=== PATIENT | female | born 1965 | race Caucasian/White ===

== ENCOUNTER 2019-09-09 23:37 | Emergency (ER) | payer MEDICAID ==
[~2019-09-09] VITALS: Ht 165.1 cm; Wt 72.6 kg
[~2019-09-09 23:37] MED LIST: ASPIR 8181 MG PO; ASPIRIN EC325 MG PO; ASPIRIN325 PO; BENTYL 10 MG CA10 M1 PO; BUTALB-APAP-CA1 EACH PO; CLONAZEPAM 0.50.5 M1 PO; DEPAKOTE; FLEXERIL PO; IBUPROFEN 800800 MG PO; KLOR-CON 1010 MEQ PO; LIPITOR 20 MG T20 M1 PO; LIPITOR10 MG PO; NAPROSYN500 MG PO; NORFLEX100 MG PO; NORVASC2.5 MG PO; NORVASC5 MG PO; OMEPRAZOLE20 M2 PO; PEPCID20 MG PO; PERCOCET 5-3251 EACH PO; PERCOCET PO; PHENERGAN 25 MG25 M1 PO; PROTONIX40 M1 PO; PROZAC 20 MG20 MG; PROZAC20 MG PO; REMERON15 MG PO; RESTORIL15 MG PO; SEROQUEL 50 MG50 MG PO; SKELAXIN 800 M800 M1 PO; TIZANIDINE HCL4 MG PO; TOPROL XL50 MG PO; TRAMADOL 50 MG50 MG PO; TRAZODONE 150150 M1 PO; ULTRAM 50MG TAB50 MG PO; VISTARIL 25 MG25 M1 PO; ZOFRAN4 MG PO
[2019-09-09] MEDS ORDERED: SEROQUEL400 MG PO (23:51)
[2019-09-09] MEDS ORDERED: TEMAZEPAM30 MG PO (23:52)
[2019-09-09] MEDS ORDERED: PAXIL40 MG PO (23:52)
[2019-09-10] MEDS ORDERED: IBUPROFEN 800800 MG PO (00:25)
[2019-09-10] MEDS ORDERED: SOMA250 MG PO (00:25)
[2019-09-10] MEDS ORDERED: MEDROLDOSEPACK PO (00:25)
[2019-09-10 00:46] VITALS: BP 150/89
== END 2019-09-10 00:51 | disposition home or self-care (01) ==
LOC: M.ERS 23:37
DX: S39.012A Strain of muscle, fascia and tendon of lower back, initial encounter (principal); I10 Essential (primary) hypertension; E78.5 Hyperlipidemia, unspecified; F17.210 Nicotine dependence, cigarettes, uncomplicated; Z90.49 Acquired absence of other specified parts of digestive tract; Z98.51 Tubal ligation status; Z98.890 Other specified postprocedural states; Z90.710 Acquired absence of both cervix and uterus; Z87.01 Personal history of pneumonia (recurrent); Z88.5 Allergy status to narcotic agent; Z88.8 Allergy status to other drugs, medicaments and biological substances; X58.XXXA Exposure to other specified factors, initial encounter; Y93.89 Activity, other specified; Y92.89 Other specified places as the place of occurrence of the external cause; Y99.8 Other external cause status

== ENCOUNTER 2020-01-31 09:47 | Emergency (ER) | payer MEDICARE, MEDICAID ==
[~2020-01-31] VITALS: Ht 165.1 cm; Wt 68.0 kg
[~2020-01-31 09:47] MED LIST changes: +MEDROLDOSEPACK PO; +PAXIL40 MG PO; +SEROQUEL400 MG PO; +SOMA250 MG PO; +TEMAZEPAM30 MG PO
[2020-01-31] MEDS ORDERED: KLONOPIN1 MG PO (10:02)
[2020-01-31] MEDS ORDERED: ZOFRAN ODT4 MG PO (11:41)
[2020-01-31] MEDS ORDERED: TRAMADOL 50 MG50 MG PO (11:41)
[2020-01-31 12:03] VITALS: BP 111/69
== END 2020-01-31 12:05 | disposition home or self-care (01) ==
LOC: M.ERS 09:47
DX: G43.909 Migraine, unspecified, not intractable, without status migrainosus (principal); I10 Essential (primary) hypertension; F17.210 Nicotine dependence, cigarettes, uncomplicated; E78.5 Hyperlipidemia, unspecified; Z90.49 Acquired absence of other specified parts of digestive tract; Z98.51 Tubal ligation status; Z98.890 Other specified postprocedural states; Z90.710 Acquired absence of both cervix and uterus; Z88.5 Allergy status to narcotic agent; Z88.8 Allergy status to other drugs, medicaments and biological substances; Z87.01 Personal history of pneumonia (recurrent)

== ENCOUNTER 2020-04-23 00:29 | Observation (INO) | payer MEDICARE, MEDICAID ==
[~2020-04-23] VITALS: Ht 165.1 cm; Wt 79.1 kg
[~2020-04-23 00:29] MED LIST changes: +KLONOPIN1 MG PO; +ZOFRAN ODT4 MG PO
[2020-04-23 00:36] VITALS: BP 136/90
[2020-04-23 01:07] LABS: ABSOLUTE BASOPHILS 0.1 thou/uL (0.0-0.2); ABSOLUTE EOSINOPHILS 0.2 thou/uL (0.0-0.7); ABSOLUTE LYMPHOCYTES 3.1 thou/uL (0.8-5.3); ABSOLUTE MONOCYTES 0.3 thou/uL (0.0-1.2); ABSOLUTE NEUTROPHILS 6.2 thou/uL (1.6-8.1); BASOPHILS 1.4 %; EOSINOPHILS 1.7 %; HEMOGLOBIN 14.8 gm/dL (12.0-15.0); MCH 33.5 pg (26.0-34.0); MCHC 35.4 g/dL (28.0-37.0); MCV 94.8 fL (80.0-100.0); MONOCYTES 2.8 %; MPV 7.4 fl. (7.2-11.1); NUCLEATED RBCS 0 /100WBC; PLATELET COUNT* 321 thou/uL (150-400); POLYS 63.1 %; RBC 4.43 mil/uL (4.20-5.00); RDW-CV 12.8 % (10.5-14.5); WBC 9.8 thou/uL (4.0-11.0)
[2020-04-23 01:15] LABS: CALCIUM 8.6 mg/dL (8.5-10.1); CREATININE 1.2 mg/dL (0.6-1.3); POTASSIUM 3.3 mmol/L (3.5-5.1)
[2020-04-23 01:26] LABS: ALBUMIN 3.9 g/dL (3.4-5.0); MAGNESIUM 1.8 mg/dL (1.8-2.4); TOTAL BILIRUBIN 0.3 mg/dL (<0.1-1.0)
[2020-04-23 03:10] VITALS: BP 153/86
[2020-04-23 03:35] VITALS: BP 142/90
--- NOTE | 2020-04-23 05:45 | NUR ---
REPORT RECIEVED FROM ER. PT ORIENTED TO ROOM, CALL LIGHT SHOWN, FALL AGREEMENT WENT OVER, PT STATED UNDERSTANDING. ADMISSION CHARTED. PAIN MEDS GIVEN PER E-MAR WITH SOME RELIEF. PT INCONTINENT OF URINE THIS SHIFT. WILL CONTINUE WITH PLAN OF CARE.
[2020-04-23 08:00] VITALS: BP 101/69
[2020-04-23 08:47] LABS: CHOLESTEROL 309 mg/dL (<200); HDL CHOLESTEROL 38 mg/dL (>40); TC:HDL 8.1 Ratio (Not establshd); TRIGLYCERIDE 410 mg/dL (<150); VLDL 82 mg/dL (<40)
[2020-04-23 08:49] LABS: LDL CHOLESTEROL ND mg/dL (<100); SERUM ASSESSMENT Clear
[2020-04-23] MEDS ORDERED: MELOXICAM15 MG PO (09:31)
[2020-04-23] MEDS ORDERED: LIPITOR40 MG PO (09:46)
[2020-04-23] MEDS ORDERED: TRAMADOL 50 MG50 MG PO (09:46)
--- NOTE | 2020-04-23 10:00 | NUR ---
PT C/O PAIN TO CHEST AND HEAD. EKG NORMAL. TROPONIN NEGATIVE. PT TO DC HOME.
[2020-04-23 10:27] VITALS: BP 101/69
--- NOTE | 2020-04-23 11:39 | NUR ---
PT DC TO HOME. DC INSTRUCTIONS, PRESCRIPTIONS, PLN OF CARE,MEDICATIONS, FOLLOW UP CARE AND DISEASE PROCESS REVIEWED WITH PT AND PT REPORTS UNDERSTANDING WITHOUT FURTHER QUESTIONS.
--- NOTE | 2020-04-23 15:48 | EKG ---
[place] [address] ELECTROCARDIOGRAM REPORT Name: WILLIE PEDRO Room: [address]R.#: [id number] Admission: 04/23/20 Attend Phys: Cheng Hall, Discharge: 04/23/20 Date of : 63 Date of Service: 04/23/20 0143 Report #: [id number] THIS REPORT FOR: //name// [facility] ED Test Date: 2020-04-23 Test Time: 01:43:47 Pat Name: WILLIE LANDON Department: Room: [facility] Gender: F Assembly Technician: BG : 1965 Requested By: Den Evangelista Order Number: [id number] MD: Ilia Borjas Measurements Intervals [place] Rate: 83 P: 75 [place]: 137 QRS: 72 QRSD: 93 T: 59 QT: 409 QTc: 481 Interpretive Statements Sinus rhythm Borderline repolarization abnormality Borderline prolonged QT interval Compared to ECG 03/01/2017 04:43:03 No significant changes Electronically Signed On 04-23-2020 15:46:01 CDT by Ilia Borjas [email or web address] <ELECTRONICALLY SIGNED> By: Ilia Borjas MD, [facility] 04/23/20 1546 0143 0143 Ilia Borjas MD, [facility] /EPI
--- NOTE | 2020-04-23 15:48 | EKG ---
[place] [address] ELECTROCARDIOGRAM REPORT Name: WILLIE PEDRO Room: [address] M.R.#: [id number] Admission: 04/23/20 Attend Phys: Cheng Hall, Discharge: 04/23/20 Date of : 63 Date of Service: 04/23/20 0032 Report #: [id number] THIS REPORT FOR: //name// [facility] ED Test Date: 2020-04-23 Test Time: 00:32:14 Pat Name: WILLIE LANDON Department: Room: [facility] Gender: F Ad Taker: BG : 1965 Requested By: Den Evangelista Order Number: [id number] MD: Ilia Borjas Measurements Intervals [place] Rate: 92 P: 64 [place]: 135 QRS: 72 QRSD: 89 T: -75 QT: 338 QTc: 419 Interpretive Statements Sinus rhythm Nonspecific repol abnormality, diffuse leads Compared to ECG 03/01/2017 04:43:03 Prolonged QT interval persists Electronically Signed On 04-23-2020 15:45:51 CDT by Ilia Borjas [email or web address] <ELECTRONICALLY SIGNED> By: Ilia Borjas MD, [facility] 04/23/20 1545 003 0032 Ilia Borjas MD, [facility] /EPI
[2020-04-24 02:07] LABS: GLYCOHEMOGLOBIN (HGB A1C) 5.5 % (4.8-5.6)
== END 2020-04-23 11:00 | disposition home or self-care (01) ==
LOC: M.ERS 00:29 → M.TBA-ER 01:56 → M.2W 01:56
PROVIDERS: Emergency Medicine Emergency Medical Services; Family Medicine; ADMIT Internal Medicine; ATTEND Internal Medicine
DX: R07.89 Other chest pain (principal); F41.8 Other specified anxiety disorders; F43.10 Post-traumatic stress disorder, unspecified; E78.5 Hyperlipidemia, unspecified; F17.210 Nicotine dependence, cigarettes, uncomplicated

== ENCOUNTER 2020-05-18 13:22 | Emergency (ER) | payer MEDICARE, MEDICAID ==
[~2020-05-18] VITALS: Ht 165.1 cm; Wt 124.7 kg
[~2020-05-18 13:22] MED LIST changes: +LIPITOR40 MG PO; +MELOXICAM15 MG PO
[2020-05-18] MEDS ORDERED: ONDANSETRON ODT4 MG PO (14:28)
[2020-05-18 14:34] VITALS: BP 105/67
== END 2020-05-18 14:36 | disposition home or self-care (01) ==
LOC: M.ERS 13:22
DX: R51 Headache (principal); I10 Essential (primary) hypertension; E78.5 Hyperlipidemia, unspecified; F32.9 Major depressive disorder, single episode, unspecified; F41.9 Anxiety disorder, unspecified; F17.210 Nicotine dependence, cigarettes, uncomplicated; Z95.5 Presence of coronary angioplasty implant and graft; Z90.49 Acquired absence of other specified parts of digestive tract; Z98.51 Tubal ligation status; Z98.890 Other specified postprocedural states; Z90.710 Acquired absence of both cervix and uterus; Z88.6 Allergy status to analgesic agent; Z88.8 Allergy status to other drugs, medicaments and biological substances

== ENCOUNTER 2020-10-19 08:22 | Emergency (ER) | payer MEDICARE, MEDICAID ==
[~2020-10-19] VITALS: Ht 165.1 cm; Wt 77.1 kg
[~2020-10-19 08:22] MED LIST changes: +ONDANSETRON ODT4 MG PO
[2020-10-19 09:11] VITALS: BP 156/92
== END 2020-10-19 09:12 | disposition left against medical advice (07) ==
LOC: M.ERS 08:22
DX: G43.909 Migraine, unspecified, not intractable, without status migrainosus (principal); I10 Essential (primary) hypertension; E78.5 Hyperlipidemia, unspecified; Z90.49 Acquired absence of other specified parts of digestive tract; Z98.51 Tubal ligation status; Z98.890 Other specified postprocedural states; Z90.710 Acquired absence of both cervix and uterus; Z87.01 Personal history of pneumonia (recurrent); Z88.5 Allergy status to narcotic agent

== ENCOUNTER 2020-10-25 01:20 | Inpatient (IN) | payer MEDICARE, MEDICAID ==
[~2020-10-25] VITALS: Ht 165.1 cm; Wt 79.3 kg
[2020-10-25 01:23] VITALS: BP 129/102
[2020-10-25 01:52] LABS: ABSOLUTE BASOPHILS 0.1 thou/uL (0.0-0.2); ABSOLUTE EOSINOPHILS 0.4 thou/uL (0.0-0.7); ABSOLUTE LYMPHOCYTES 3.3 thou/uL (0.8-5.3); ABSOLUTE MONOCYTES 0.9 thou/uL (0.0-1.2); ABSOLUTE NEUTROPHILS 6.9 thou/uL (1.6-8.1); BASOPHILS 0.8 %; EOSINOPHILS 3.8 %; HEMATOCRIT 39.8 % (37.0-47.0); HEMOGLOBIN 13.7 gm/dL (12.0-15.0); LYMPHOCYTES 28.4 %; MCH 32.5 pg (26.0-34.0); MCHC 34.3 g/dL (28.0-37.0); MCV 94.9 fL (80.0-100.0); MONOCYTES 7.6 %; NUCLEATED RBCS 0 /100WBC; PLATELET COUNT* 295 thou/uL (150-400); POLYS 59.4 %; RDW-CV 13.1 % (10.5-14.5); WBC 11.6 thou/uL (4.0-11.0)
[2020-10-25 01:57] LABS: PROTIME 10.2 Seconds (9.20-11.50)
[2020-10-25 02:18] LABS: URINE BILIRUBIN NEGATIVE (Negative); URINE BLOOD NEGATIVE (Negative); URINE CLARITY CLEAR; URINE COLOR YELLOW; URINE GLUCOSE-RANDOM NEGATIVE (Negative); URINE KETONES NEGATIVE (Negative); URINE LEUKOCYTES-REFLEX NEGATIVE (Negative); URINE NITRITE-REFLEX NEGATIVE (Negative); URINE PROTEIN NEGATIVE (Negative); URINE SPECIFIC GRAVITY <= 1.005 (1.005-1.030); URINE UROBILINOGEN 0.2 E.U./dl (0.2-1.0)
[2020-10-25 02:26] LABS: AMP/METHAMP Negative (Negative); BARBITURATES Negative (Negative); BENZODIAZEPINES Negative (Negative); COCAINE Negative (Negative); METHADONE Negative (Negative); OPIATES POSITIVE (Negative); PCP Negative (Negative); THC Negative (Negative)
[2020-10-25 02:37] LABS: CALCIUM 8.7 mg/dL (8.5-10.1); POTASSIUM 3.5 mmol/L (3.5-5.1)
[2020-10-25 02:48] LABS: ALBUMIN 3.5 g/dL (3.4-5.0); MAGNESIUM 1.8 mg/dL (1.8-2.4); TOTAL BILIRUBIN 0.2 mg/dL (<0.1-1.0); TOTAL PROTEIN 7.2 g/dL (6.4-8.2)
[2020-10-25 10:37] VITALS: BP 140/83
--- NOTE | 2020-10-25 13:43 | 2DMMODE ---
[place] [address] 2 D/M-MODE ECHOCARDIOGRAM Name: WILLIE PEDOR Room: [place] [address] ADM IN [facility]#: [id number] Admission: 10/25/20 Attend Phys: Cheng Hall, Discharge: Date of : 63 Date of Service: 10/25/20 1342 Report #: [id number] THIS REPORT FOR: cc: FAM - No family physician/PCP FAM - No family physician/PCP Mendoza Wilson MD [facility] ~ APPROVED REPORT Study performed: 10/25/2020 09:45:34 EXAM: Comprehensive 2D, Doppler, and color-flow Echocardiogram Patient Location: In-Patient Room #: er Status: routine BSA: 1.80 HR: 68 bpm BP: 124/75 mmHg Rhythm: NSR Other Information Study Quality: Good Indications Chest Pain 2D Dimensions IVSd: 10.91 (7-11mm) LVOT Diam: 21.17 (18-24mm) LVDd: 46.82 mm PWd: 10.35 (7-11mm) Ascending Ao: 32.72 (22-36mm) LVDs: 29.55 (25-40mm) Aortic Root: 31.58 mm Volumes Left Atrial Volume (Systole) LA ESV Index: 29.50 mL/m2 Aortic Valve AoV Peak Antoni.: 1.46 m/s AO Peak Gr.: 8.53 mmHg LVOT Max P.41 mmHg AO Mean Gr.: 4.67 mmHg LVOT Mean P.30 mmHg LVOT Max V: 0.78 m/s AO V2 VTI: 32.33 cm LVOT Mean V: 0.53 m/s BELLA (VTI): 1.96 cm2 LVOT V1 VTI: 17.98 cm AI Wilcox: 2.64 m/s2 [place] [address] 2 D/M-MODE ECHOCARDIOGRAM Name: WILLIE PEDRO Room: [address] IN .R.#: [id number] Admission: 10/25/20 Attend Phys: Cheng Hall, Discharge: Date of : 63 Date of Service: 10/25/20 1342 Report #: [id number] AI PHT: 444.39 ms Mitral Valve E/A Ratio: 1.12 MV Decel. Time: 213.41 ms MV E Max Antoni.: 0.75 m/s MV PHT: 61.89 ms MVA (PHT): 3.55 cm2 TDI E/Lateral E': 7.50 E/Medial E': 8.33 Medial E' Antoni.: 0.09 m/s Lateral E' Antoni.: 0.10 m/s Pulmonary Valve PV Peak Antoni.: 0.90 m/s PV Peak Gr.: 3.23 mmHg Tricuspid Valve RAP Estimate: 5.00 mmHg TR Peak Gr.: 30.79 mmHg RVSP: 35.00 mmHg PA Pressure: 35.00 mmHg Left Ventricle The left ventricle is normal size. There is normal LV segmental wall motion. There is normal left ventricular wall thickness. Left ventricular systolic function is normal. LVEF is 55-60%. The left ventricular diastolic function is normal. Right Ventricle The right ventricle is normal size. The right ventricular systolic function is normal. Atria The left atrium size is normal. The right atrium size is normal. Aortic Valve The aortic valve is normal in structure. Mild aortic regurgitation. There is no aortic valvular stenosis. Mitral Valve The mitral valve is normal in structure. Mild mitral regurgitation. No evidence of mitral valve stenosis. Tricuspid Valve The tricuspid valve is normal in structure. [place] [address] 2 D/M-MODE ECHOCARDIOGRAM Name: WILLIE PEDRO Room: [address] IN [facility]#: [id number] Admission: 10/25/20 Attend Phys: Cheng Hall, Discharge: Date of : 63 Date of Service: 10/25/20 1342 Report #: [id number] regurgitation. Mild pulmonary hypertension. The RVSP is 40-45 mmHg. Pulmonic Valve The pulmonary valve is normal in structure. Trace pulmonic regurgitation. Great Vessels The aortic root is normal in size. IVC is normal in size and collapses >50% with inspiration. Pericardium There is no pericardial effusion. <Conclusion> The left ventricle is normal size. There is normal left ventricular wall thickness. Left ventricular systolic function is normal. LVEF is 55-60%. The left ventricular diastolic function is normal. Mild aortic regurgitation. Mild mitral regurgitation. Mild tricuspid regurgitation. Mild pulmonary hypertension. The RVSP is 40-45 mmHg. IVC is normal in size and collapses >50% with inspiration. <ELECTRONICALLY SIGNED> By: Mendoza Wilson MD, FACC 10/25/20 134 41 41 Mendoza Wilson MD, FACC /INF
[2020-10-25 13:49] VITALS: BP 120/69
--- NOTE | 2020-10-25 14:07 | EKG ---
[place] [address] ELECTROCARDIOGRAM REPORT Name: WILLIE PEDRO Room: [address] ADM IN [facility]#: [id number] Admission: 10/25/20 Attend Phys: Cheng Hall, Discharge: Date of : 63 Date of Service: 10/25/20 0558 Report #: [id number] THIS REPORT FOR: //name// [facility] ED Test Date: 2020-10-25 Test Time: 05:58:41 Pat Name: WILLIE LANDON Department: Room: [facility] Gender: F Product Mgmt Dev Manager: MARLO : 1965 Requested By: Mercedes Espinoza Order Number: [id number] MD: Chele Quintana Measurements Intervals [place] Rate: 67 P: 72 [place]: 146 QRS: 67 QRSD: 115 T: 72 QT: 437 QTc: 462 Interpretive Statements Sinus rhythm Nonspecific intraventricular conduction delay Minimal ST depression, lateral leads Baseline wander in lead(s) V1,V6 Electronically Signed On 10-25-2020 14:07:32 AEROGRAPHER by Chele Quintana [email or web address] <ELECTRONICALLY SIGNED> By: Chele Quintana MD, FAC 10/25/20 1407 0558 0558 Chele Quintana MD, [facility] /EPI
--- NOTE | 2020-10-25 14:07 | EKG ---
[place] [address] ELECTROCARDIOGRAM REPORT Name: WILLIE PEDRO Room: [address] ADM IN [facility]#: [id number] Admission: 10/25/20 Attend Phys: Cheng Hall, Discharge: Date of : 63 Date of Service: 10/25/20 0129 Report #: [id number] THIS REPORT FOR: //name// [facility] ED Test Date: 2020-10-25 Test Time: 01:29:00 Pat Name: WILLIE LANDON Department: Room: [facility] Gender: F Scratch Finisher: MR : 1965 Requested By: Mercedes Espinoza Order Number: [id number] MD: Chele Quintana Measurements Intervals [place] Rate: 70 P: 67 NH: 142 QRS: 73 QRSD: 98 T: 70 QT: 460 QTc: 497 Interpretive Statements Sinus rhythm Minimal ST depression, diffuse leads Borderline prolonged QT interval Compared to ECG 04/23/2020 01:43:47 no change Electronically Signed On 10-25-2020 14:07:12 COMPUTER NETWORKER by Chele Quintana [email or web address] <ELECTRONICALLY SIGNED> By: Chele Quintana MD, FACC 10/25/20 1407 0129 0129 Chele Quintana MD, [facility] /EPI
[2020-10-25 20:00] VITALS: BP 116/69
[2020-10-26 00:19] VITALS: BP 116/65
[2020-10-26 04:15] LABS: ABSOLUTE LYMPHOCYTES 1.1 thou/uL (0.8-5.3); ABSOLUTE MONOCYTES 0.4 thou/uL (0.0-1.2); ABSOLUTE NEUTROPHILS 12.9 thou/uL (1.6-8.1); BASOPHILS 0.2 %; HEMATOCRIT 37.3 % (37.0-47.0); HEMOGLOBIN 12.4 gm/dL (12.0-15.0); LYMPHOCYTES 7.8 %; MCH 31.8 pg (26.0-34.0); MCHC 33.2 g/dL (28.0-37.0); MCV 95.7 fL (80.0-100.0); MONOCYTES 2.9 %; NUCLEATED RBCS 0 /100WBC; PLATELET COUNT* 289 thou/uL (150-400); POLYS 89.1 %; RBC 3.89 mil/uL (4.20-5.00); WBC 14.4 thou/uL (4.0-11.0)
[2020-10-26 04:30] LABS: CALCIUM 8.4 mg/dL (8.5-10.1); CREATININE 1.1 mg/dL (0.6-1.3); POTASSIUM 4.1 mmol/L (3.5-5.1)
[2020-10-26 04:48] VITALS: BP 109/62
[2020-10-26 08:00] VITALS: BP 119/74
[2020-10-26 11:43] VITALS: BP 145/70
[2020-10-26 16:00] VITALS: BP 142/65
[2020-10-27 08:00] VITALS: BP 147/90
[2020-10-27] MEDS ORDERED: PREDNISONE 10 M10 MG PO (09:45)
[2020-10-27] MEDS ORDERED: AUGMENTIN 875-1 EACH PO (09:45)
[2020-10-27] MEDS ORDERED: NICOTINE TRANSD21 M1 TRANSDERM (09:45)
[2020-10-27] MEDS ORDERED: PERCOCET 10-321 EACH PO (09:45)
[2020-10-27] MEDS ORDERED: SINGULAIR 10 MG10 M1 PO (09:49)
[2020-10-27 09:56] VITALS: BP 147/90
== END 2020-10-27 14:30 | disposition home or self-care (01) | DRG 189 ==
LOC: M.ERS 01:20 → M.2W 06:47 → M.TBA-ER 06:47 → M.2W 14:00
PROVIDERS: Emergency Medicine; ADMIT Internal Medicine; ATTEND Internal Medicine
PROC: 5A0935A Assistance with Respiratory Ventilation, Less than 24 Consecutive Hours, High Flow/Velocity Cannula (ICD-10-PCS; principal; 2020-10-25)
PROC: 5A0935A Assistance with Respiratory Ventilation, Less than 24 Consecutive Hours, High Flow/Velocity Cannula (ICD-10-PCS; 2020-10-26)
DX: J96.21 Acute and chronic respiratory failure with hypoxia (principal); J44.1 Chronic obstructive pulmonary disease with (acute) exacerbation; F41.9 Anxiety disorder, unspecified; R09.1 Pleurisy; D72.829 Elevated white blood cell count, unspecified; F17.210 Nicotine dependence, cigarettes, uncomplicated; F43.10 Post-traumatic stress disorder, unspecified; F32.9 Major depressive disorder, single episode, unspecified; I10 Essential (primary) hypertension; G89.29 Other chronic pain; K21.9 Gastro-esophageal reflux disease without esophagitis; E78.5 Hyperlipidemia, unspecified; Z20.828 Contact with and (suspected) exposure to other viral communicable diseases; Z90.49 Acquired absence of other specified parts of digestive tract; Z98.891 History of uterine scar from previous surgery; Z90.710 Acquired absence of both cervix and uterus; Z79.899 Other long term (current) drug therapy; Z88.5 Allergy status to narcotic agent; Z88.8 Allergy status to other drugs, medicaments and biological substances

== ENCOUNTER 2020-11-15 07:18 | Emergency (ER) | payer MEDICARE, MEDICAID ==
[~2020-11-15] VITALS: Ht 165.1 cm; Wt 72.6 kg
[~2020-11-15 07:18] MED LIST changes: +AUGMENTIN 875-1 EACH PO; +NICOTINE TRANSD21 M1 TRANSDERM; +PERCOCET 10-321 EACH PO; +PREDNISONE 10 M10 MG PO; +SINGULAIR 10 MG10 M1 PO
[2020-11-15 07:47] LABS: HEMATOCRIT 41.8 % (37.0-47.0); HEMOGLOBIN 14.1 gm/dL (12.0-15.0); MCH 32.5 pg (26.0-34.0); MCHC 33.8 g/dL (28.0-37.0); MCV 96.3 fL (80.0-100.0); MPV 6.9 fl. (7.2-11.1); NUCLEATED RBCS 0 /100WBC; PLATELET COUNT* 333 thou/uL (150-400); RBC 4.34 mil/uL (4.20-5.00); RDW-CV 13.8 % (10.5-14.5); WBC 10.6 thou/uL (4.0-11.0)
[2020-11-15 07:59] LABS: CALCIUM 8.2 mg/dL (8.5-10.1); CREATININE 1.3 mg/dL (0.6-1.3); POTASSIUM 3.9 mmol/L (3.5-5.1)
[2020-11-15 08:09] LABS: ALBUMIN 3.5 g/dL (3.4-5.0); MAGNESIUM 1.7 mg/dL (1.8-2.4); TOTAL BILIRUBIN 0.2 mg/dL (<0.1-1.0); TOTAL PROTEIN 7.3 g/dL (6.4-8.2)
[2020-11-15 08:19] LABS: ABSOLUTE EOSINOPHILS 0.1 thou/uL (0.0-0.7); ABSOLUTE LYMPHOCYTES 2.7 thou/uL (0.8-5.3); ABSOLUTE MONOCYTES 0.3 thou/uL (0.0-1.2); ABSOLUTE NEUTROPHILS 7.5 thou/uL (1.6-8.1); PLATELET ESTIMATE ADEQUATE
[2020-11-15] MEDS ORDERED: ULTRAM50 MG PO (15:31)
[2020-11-15 15:55] VITALS: BP 124/66
--- NOTE | 2020-11-15 16:25 | EKG ---
[place] [address] ELECTROCARDIOGRAM REPORT Name: WILLIE PEDRO Room: [facility]#: [id number] Admission: 11/15/20 Attend Phys: Discharge: 11/15/20 Date of : 63 Date of Service: 11/15/20 0723 Report #: [id number] THIS REPORT FOR: //name// ED Test Date: 2020-11-15 Test Time: 07:23:37 Pat Name: WILLIE LANDON Department: Room: Gender: F [place] Head: HOWARD : 1965 Requested By: Den Evangelista Order Number: [id number] MD: Mendoza Wilson Measurements Intervals [place] Rate: 84 P: 65 [place]: 129 QRS: 74 QRSD: 89 T: 63 QT: 390 QTc: 462 Interpretive Statements Sinus rhythm Minimal ST depression, inferior leads Compared to ECG 10/25/2020 05:58:41 Intraventricular conduction delay no longer present ST (T wave) deviation still present Electronically Signed On 11-15-2020 16:25:30 DOPE FIRER by Mendoza Wilson [email or web address] <ELECTRONICALLY SIGNED> By: Mendoza Wilson MD, FACC 11/15/20 1625 Mendoza Wilson MD, FAC /EPI
--- NOTE | 2020-11-15 16:27 | EKG ---
[place] [address] ELECTROCARDIOGRAM REPORT Name: WILLIE PEDRO Room: [facility]#: [id number] Admission: 11/15/20 Attend Phys: Discharge: 11/15/20 Date of : 63 Date of Service: 11/15/20930 Report #: [id number] THIS REPORT FOR: //name// [facility] ED Test Date: 2020-11-15 Test Time: 09:31:15 Pat Name: WILLIE LANDON Department: Room: Gender: F Towboat Pilot: JANAK : 1965 Requested By: Den Evangelista Order Number: [id number] MD: Mendoza Wilson Measurements Intervals [place] Rate: 75 P: 50 MI: 129 QRS: 69 QRSD: 89 T: 78 QT: 416 QTc: 465 Interpretive Statements Sinus rhythm Minimal ST depression, diffuse leads Compared to ECG 11/15/2020 07:23:37 No significant changes Electronically Signed On 11-15-2020 16:27:08 COLOR BLENDER by Mendoza Wilson [email or web address] <ELECTRONICALLY SIGNED> By: Mendoza Wilson MD, FACC 11/15/20 1627 0 Mendoza Wilson MD, [facility] /EPI
--- NOTE | 2020-11-15 16:34 | EXE ---
[place] [address] STRESS ECHOCARDIOGRAM Name: MARIAH LANDONWILLIE Room: [facility]#: [id number] Admission: 11/15/20 Attend Phys: Discharge: 11/15/20 Date of : 63 Date of Service: 11/15/20 1634 Report #: [id number] THIS REPORT FOR: cc: NANCY BENJAMIN MD, CHADWICK MD Liston, Michael J. MD [facility] ~ APPROVED REPORT Study performed: 11/15/2020 13:38:46 Exam: Dobutamine Stress Echo Indication: Chest pain Patient Location: ER Stress Nurse: Trinity Savage RN Supervising Physician: Ilia Borjas MD Status: routine Ht: 5 ft 5 in HR: 74 bpm BP: 109/82 mmHg Rhythm: NSR Medical History Allergies: codeine, ntg Cardiac Risk Factors: HTN, Hyperlipidemia, Tobacco History (Current/Recent) Procedure The patient underwent a Pharmacological Stress Test using Dobutamine. Blood pressure, heart rate, and EKG were monitored. An Echocardiogram was performed by pharmacy technician infusion in four stages in quad fashion. At peak stress, four selected images were obtained and placed side by side with resting images for comparison. Stress Test Details Stress Test: Pharmacological Stress Test using Dobutamine. Reason for pharmacologic stress test: physical limitation. HR Resting HR: 74 bpm Max Heart Rate (APMHR): 164 bpm Max HR Achieved: 141 bpm Target HR (85% APMHR): 139 bpm % of APMHR: 85 Recovery HR: 90 bpm HR response to stress: [place] [address] STRESS ECHOCARDIOGRAM Name: WILLIE PEDRO Room: [facility]#: [id number] Admission: 11/15/20 Attend Phys: Discharge: 11/15/20 Date of : 63 Date of Service: 11/15/20 1634 Report #: [id number] Resting BP: 109/82 mmHg Max BP: 145/69 mmHg Recovery BP: 100/67 mmHg BP response to stress: Normal blood pressure response to stress. ECG Resting ECG: Sinus Rhythm, nonspecific ST-T abnormalities Stress ECG: Sinus Tachycardia, nonspecific ST-T abnormalities ST Change: None Arrhythmia: None Recovery ECG: Sinus Rhythm, nonspecific ST-T abnormalities Recovery ST Change: None Recovery Arrhythmia: None Clinical Reason for Termination: Completed protocol The patient tolerated dobutamine stress rest without significant cardiac complaint. Stress ECG Conclusion Baseline twelve-lead EKG shows sinus rhythm with subtle ST segment depression diffusely. EKGs obtained during and post dobutamine infusion show sinus rhythm and sinus tachycardia with persistent diffuse ST segment depression. There were no stress-induced arrhythmias. Pre-Stress Echo The resting Echocardiogram showed normal left ventricular contractility with an estimated Ejection Fraction of about 55-60%. The resting echocardiogram demonstrated normal wall motion in all wall segments. Post-Stress Echo The stress Echocardiogram showed normal left ventricular contractility with an estimated Ejection Fraction of about >70%. Compared to rest, there were no stress-induced wall motion abnormalities. Conclusion Clinical Response: Non-ischemic Stress ECG Response: Nondiagnostic Stress Echo Images: [place] [address] STRESS ECHOCARDIOGRAM Name: WILLIE PEDRO Room: [facility]#: [id number] Admission: 11/15/20 Attend Phys: Discharge: 11/15/20 Date of : 63 Date of Service: 11/15/20 1634 Report #: [id number] EKG was nondiagnostic due to baseline ST segment abnormalities. Echocardiogram was obtained prior during and post dobutamine infusion show normal LV systolic function with no evidence of stress-induced wall motion abnormality. This is a low risk study. Other Information Study Quality: Good <Conclusion> EKG was nondiagnostic due to baseline ST segment abnormalities. Echocardiogram was obtained prior during and post dobutamine infusion show normal LV systolic function with no evidence of stress-induced wall motion abnormality. This is a low risk study. <ELECTRONICALLY SIGNED> By: Mendoza Wilson MD, [facility] 11/15/20 1634 1634 163 Mendoza Wilson MD, FACC /INF
== END 2020-11-15 15:56 | disposition home or self-care (01) ==
LOC: M.ERS 07:18
PROVIDERS: Emergency Medicine Emergency Medical Services
DX: R07.81 Pleurodynia (principal); J44.9 Chronic obstructive pulmonary disease, unspecified; F41.9 Anxiety disorder, unspecified; I10 Essential (primary) hypertension; E78.5 Hyperlipidemia, unspecified; F32.9 Major depressive disorder, single episode, unspecified; F17.210 Nicotine dependence, cigarettes, uncomplicated; Z98.890 Other specified postprocedural states; Z90.49 Acquired absence of other specified parts of digestive tract; Z90.711 Acquired absence of uterus with remaining cervical stump; Z79.899 Other long term (current) drug therapy; Z88.5 Allergy status to narcotic agent; Z88.8 Allergy status to other drugs, medicaments and biological substances

== ENCOUNTER 2020-11-20 19:17 | Emergency (ER) | payer MEDICARE, MEDICAID ==
[~2020-11-20] VITALS: Ht 165.1 cm; Wt 72.6 kg
[~2020-11-20 19:17] MED LIST changes: +ULTRAM50 MG PO
[2020-11-20 20:53] LABS: MPV 6.9 fl. (7.2-11.1); NUCLEATED RBCS 0 /100WBC; PLATELET COUNT* 322 thou/uL (150-400)
[2020-11-20 20:54] LABS: URINE BILIRUBIN NEGATIVE (Negative); URINE BLOOD NEGATIVE (Negative); URINE CLARITY CLEAR; URINE COLOR YELLOW; URINE GLUCOSE-RANDOM NEGATIVE (Negative); URINE KETONES NEGATIVE (Negative); URINE LEUKOCYTES-REFLEX NEGATIVE (Negative); URINE NITRITE-REFLEX NEGATIVE (Negative); URINE PROTEIN NEGATIVE (Negative); URINE SPECIFIC GRAVITY <= 1.005 (1.005-1.030); URINE UROBILINOGEN 0.2 E.U./dl (0.2-1.0)
[2020-11-20 20:56] LABS: HEMATOCRIT 40.6 % (37.0-47.0); HEMOGLOBIN 13.7 gm/dL (12.0-15.0); MCH 32.3 pg (26.0-34.0); MCHC 33.8 g/dL (28.0-37.0); MCV 95.5 fL (80.0-100.0); RBC 4.25 mil/uL (4.20-5.00); RDW-CV 13.7 % (10.5-14.5); WBC 12.4 thou/uL (4.0-11.0)
[2020-11-20 21:02] LABS: CALCIUM 8.5 mg/dL (8.5-10.1); POTASSIUM 3.9 mmol/L (3.5-5.1)
[2020-11-20 21:03] LABS: AMP/METHAMP Negative (Negative); BARBITURATES POSITIVE (Negative); BENZODIAZEPINES Negative (Negative); COCAINE Negative (Negative); METHADONE Negative (Negative); OPIATES Negative (Negative); PCP Negative (Negative); THC Negative (Negative)
[2020-11-20 21:07] LABS: ALBUMIN 3.4 g/dL (3.4-5.0); TOTAL BILIRUBIN 0.2 mg/dL (<0.1-1.0); TOTAL PROTEIN 6.8 g/dL (6.4-8.2)
[2020-11-20] MEDS ORDERED: TORADOL 10 MG T10 MG PO (21:37)
[2020-11-20] MEDS ORDERED: HYDROCODON-ACE1 EAC7 PO (21:37)
[2020-11-20 21:44] LABS: ABSOLUTE LYMPHOCYTES 4.2 thou/uL (0.8-5.3); ABSOLUTE MONOCYTES 1.1 thou/uL (0.0-1.2); ABSOLUTE NEUTROPHILS 7.1 thou/uL (1.6-8.1)
[2020-11-20 21:45] VITALS: BP 131/79
[2020-11-20 21:45] LABS: PLATELET ESTIMATE ADEQUATE
--- NOTE | 2020-11-22 12:42 | EKG ---
[place] [address] ELECTROCARDIOGRAM REPORT Name: WILLIE PEDRO Room: [facility]#: [id number] Admission: 11/20/20 Attend Phys: Discharge: 11/20/20 Date of : 63 Date of Service: 11/20/201919 Report #: [id number] THIS REPORT FOR: //name// [place] ED Test Date: 2020-11-20 Test Time: 19:20:00 Pat Name: WILLIE LANDON Department: Room: Gender: F Shot Peen Operator: JAE : 1965 Requested By: Norma Ritter Order Number: [id number] MD: Chele Quintana Measurements Intervals [place] Rate: 81 P: 68 [place]: 131 QRS: 69 QRSD: 95 T: 72 QT: 384 QTc: 446 Interpretive Statements Sinus rhythm Compared to ECG 11/15/2020 09:31:15 ST (T wave) deviation no longer present Electronically Signed On 11-22-2020 12:42:25 CONSTRUCTION ENGINEERING MANAGER by Chele Quintana [email or web address] <ELECTRONICALLY SIGNED> By: Chele Quintana MD, FAC 11/22/20 1242 1920 1920 Chele Quintana MD, [facility] /EPI
== END 2020-11-20 21:46 | disposition home or self-care (01) ==
LOC: M.ERS 19:17
PROVIDERS: Personal Emergency Response Attendant
DX: R07.89 Other chest pain (principal); I10 Essential (primary) hypertension; E78.5 Hyperlipidemia, unspecified; F17.210 Nicotine dependence, cigarettes, uncomplicated; Z90.710 Acquired absence of both cervix and uterus; Z90.49 Acquired absence of other specified parts of digestive tract; Z79.899 Other long term (current) drug therapy; Z88.5 Allergy status to narcotic agent; Z88.8 Allergy status to other drugs, medicaments and biological substances

== ENCOUNTER 2020-12-03 09:43 | Emergency (ER) | payer MEDICARE, MEDICAID ==
[~2020-12-03] VITALS: Ht 165.1 cm; Wt 68.0 kg
[~2020-12-03 09:43] MED LIST changes: +HYDROCODON-ACE1 EAC7 PO; +TORADOL 10 MG T10 MG PO
[2020-12-03 12:12] VITALS: BP 110/62
== END 2020-12-03 12:13 | disposition left against medical advice (07) ==
LOC: M.ERS 09:43
DX: R51.9 Headache, unspecified (principal); I10 Essential (primary) hypertension; E78.5 Hyperlipidemia, unspecified; F17.210 Nicotine dependence, cigarettes, uncomplicated; Z90.710 Acquired absence of both cervix and uterus; Z79.899 Other long term (current) drug therapy; Z88.5 Allergy status to narcotic agent; Z88.8 Allergy status to other drugs, medicaments and biological substances

== ENCOUNTER 2020-12-30 04:14 | Emergency (ER) | payer MEDICARE, MEDICAID ==
[~2020-12-30] VITALS: Ht 165.1 cm; Wt 77.1 kg
[2020-12-30 04:39] LABS: URINE BILIRUBIN NEGATIVE (Negative); URINE BLOOD NEGATIVE (Negative); URINE CLARITY CLEAR; URINE COLOR YELLOW; URINE GLUCOSE-RANDOM NEGATIVE (Negative); URINE KETONES NEGATIVE (Negative); URINE LEUKOCYTES-REFLEX NEGATIVE (Negative); URINE NITRITE-REFLEX NEGATIVE (Negative); URINE PROTEIN NEGATIVE (Negative); URINE UROBILINOGEN 0.2 E.U./dl (0.2-1.0)
[2020-12-30] MEDS ORDERED: TRAMADOL 50 MG50 MG PO (04:56)
[2020-12-30] MEDS ORDERED: SOMA350 MG PO (04:56)
[2020-12-30] MEDS ORDERED: MEDROLDOSEPACK PO ×2 (04:56→05:29)
[2020-12-30 05:30] VITALS: BP 138/78
== END 2020-12-30 05:30 | disposition home or self-care (01) ==
LOC: M.ERS 04:14
PROVIDERS: Emergency Medicine
DX: M54.5 Low back pain (principal); I10 Essential (primary) hypertension; E78.5 Hyperlipidemia, unspecified; F17.210 Nicotine dependence, cigarettes, uncomplicated; Z88.5 Allergy status to narcotic agent; Z88.8 Allergy status to other drugs, medicaments and biological substances; Z90.49 Acquired absence of other specified parts of digestive tract; Z98.51 Tubal ligation status; Z90.710 Acquired absence of both cervix and uterus; Z87.01 Personal history of pneumonia (recurrent)

== ENCOUNTER 2021-01-03 20:36 | Emergency (ER) | payer MEDICARE, MEDICAID ==
[~2021-01-03] VITALS: Ht 165.1 cm; Wt 77.1 kg
[~2021-01-03 20:36] MED LIST changes: +SOMA350 MG PO
[2021-01-03] MEDS ORDERED: SOMA350 MG PO (20:59)
[2021-01-03] MEDS ORDERED: TRAMADOL 50 MG50 MG PO (20:59)
[2021-01-03 21:05] VITALS: BP 146/116
== END 2021-01-03 21:05 | disposition home or self-care (01) ==
LOC: M.ERS 20:36
DX: M54.5 Low back pain (principal); I10 Essential (primary) hypertension; E78.5 Hyperlipidemia, unspecified; Z98.51 Tubal ligation status; Z98.890 Other specified postprocedural states; Z90.711 Acquired absence of uterus with remaining cervical stump; F32.9 Major depressive disorder, single episode, unspecified; F41.9 Anxiety disorder, unspecified; F17.210 Nicotine dependence, cigarettes, uncomplicated; Z79.899 Other long term (current) drug therapy; Z88.5 Allergy status to narcotic agent; Z88.8 Allergy status to other drugs, medicaments and biological substances

== ENCOUNTER 2021-01-30 18:32 | Emergency (ER) | payer MEDICARE, MEDICAID ==
[~2021-01-30] VITALS: Ht 165.1 cm; Wt 77.1 kg
[2021-01-30 19:20] LABS: HEMATOCRIT 40.3 % (37.0-47.0); HEMOGLOBIN 13.7 gm/dL (12.0-15.0); MCHC 34.1 g/dL (28.0-37.0); MCV 96.7 fL (80.0-100.0); NUCLEATED RBCS 0 /100WBC; PLATELET COUNT* 301 thou/uL (150-400); RBC 4.16 mil/uL (4.20-5.00); RDW-CV 13.6 % (10.5-14.5); WBC 8.5 thou/uL (4.0-11.0)
[2021-01-30 19:32] LABS: CALCIUM 8.7 mg/dL (8.5-10.1); CREATININE 1.1 mg/dL (0.6-1.3); POTASSIUM 4.2 mmol/L (3.5-5.1)
[2021-01-30 19:33] LABS: APTT 24.2 Seconds (25.0-31.3); INR 0.9; PROTIME 9.8 Seconds (9.20-11.50)
[2021-01-30 19:46] LABS: ALBUMIN 3.6 g/dL (3.4-5.0); MAGNESIUM 2.1 mg/dL (1.8-2.4); TOTAL BILIRUBIN 0.3 mg/dL (<0.1-1.0); TOTAL PROTEIN 7.1 g/dL (6.4-8.2)
[2021-01-30 19:56] LABS: ABSOLUTE MONOCYTES 0.3 thou/uL (0.0-1.2); ABSOLUTE NEUTROPHILS 5.3 thou/uL (1.6-8.1); ATYPICAL LYMPHS 2 %; PLATELET ESTIMATE ADEQUATE
[2021-01-30 19:59] LABS: URINE BILIRUBIN NEGATIVE (Negative); URINE BLOOD NEGATIVE (Negative); URINE CLARITY CLEAR; URINE COLOR YELLOW; URINE GLUCOSE-RANDOM NEGATIVE (Negative); URINE KETONES NEGATIVE (Negative); URINE LEUKOCYTES-REFLEX NEGATIVE (Negative); URINE NITRITE-REFLEX NEGATIVE (Negative); URINE PROTEIN NEGATIVE (Negative); URINE UROBILINOGEN 0.2 E.U./dl (0.2-1.0)
[2021-01-30 20:11] LABS: AMP/METHAMP Negative (Negative); BARBITURATES Negative (Negative); BENZODIAZEPINES Negative (Negative); COCAINE Negative (Negative); METHADONE Negative (Negative); OPIATES Negative (Negative); PCP Negative (Negative); THC Negative (Negative)
[2021-01-30] MEDS ORDERED: TORADOL 10 MG T10 MG PO (20:37)
[2021-01-30 20:57] VITALS: BP 151/92
--- NOTE | 2021-01-31 09:59 | EKG ---
[place] [address] ELECTROCARDIOGRAM REPORT Name: MARIAHDIPESHShahzadWILLIE R Room: [facility]#: [id number] Admission: 01/30/21 Attend Phys: Discharge: 01/30/21 Date of : 63 Date of Service: 01/30/211842 Report #: [id number] THIS REPORT FOR: //name// [facility] ED Test Date: 2021-01-30 Test Time: 18:43:58 Pat Name: WILLIE JHAVERI Department: Room: Gender: F Media Production Operator: SYEDA : 1965 Requested By: Brayden England Order Number: [id number] MD: Chele Quintana Measurements Intervals [place] Rate: 91 P: 56 [place]: 130 QRS: 69 QRSD: 90 T: 57 QT: 384 QTc: 473 Interpretive Statements Sinus rhythm Ventricular premature complex Borderline ST depression, diffuse leads Baseline wander in lead(s) V5,V6 Compared to ECG 11/20/2020 19:20:00 Ventricular premature complex(es) now present Electronically Signed On 01-31-2021 9:59:26 CDT by Chele Quintana [email or web address] <ELECTRONICALLY SIGNED> By: Chele Quintana MD, FACC 01/31/21 0959 184 1843 Chele Quintana MD, FAC /EPI
== END 2021-01-30 20:57 | disposition home or self-care (01) ==
LOC: M.ERS 18:32
PROVIDERS: Family Medicine; Personal Emergency Response Attendant
DX: R07.89 Other chest pain (principal); R42 Dizziness and giddiness; R06.02 Shortness of breath; I10 Essential (primary) hypertension; F32.9 Major depressive disorder, single episode, unspecified; F41.9 Anxiety disorder, unspecified; E78.00 Pure hypercholesterolemia, unspecified; F17.210 Nicotine dependence, cigarettes, uncomplicated; Z90.49 Acquired absence of other specified parts of digestive tract; Z98.890 Other specified postprocedural states; Z90.711 Acquired absence of uterus with remaining cervical stump; Z79.899 Other long term (current) drug therapy; Z88.5 Allergy status to narcotic agent; Z88.8 Allergy status to other drugs, medicaments and biological substances

== ENCOUNTER 2021-02-19 06:00 | Emergency (ER) | payer MEDICARE, MEDICAID ==
[~2021-02-19] VITALS: Ht 165.1 cm; Wt 77.1 kg
[2021-02-19 07:06] LABS: AMP/METHAMP Negative (Negative); BARBITURATES Negative (Negative); BENZODIAZEPINES Negative (Negative); COCAINE Negative (Negative); METHADONE Negative (Negative); OPIATES Negative (Negative); PCP Negative (Negative); THC Negative (Negative)
[2021-02-19 07:12] LABS: ABSOLUTE BASOPHILS 0.1 thou/uL (0.0-0.2); ABSOLUTE EOSINOPHILS 0.2 thou/uL (0.0-0.7); ABSOLUTE MONOCYTES 0.8 thou/uL (0.0-1.2); ABSOLUTE NEUTROPHILS 4.3 thou/uL (1.6-8.1); BASOPHILS 0.8 %; EOSINOPHILS 2.7 %; HEMATOCRIT 37.4 % (37.0-47.0); HEMOGLOBIN 12.7 gm/dL (12.0-15.0); LYMPHOCYTES 35.7 %; MCH 32.8 pg (26.0-34.0); MCV 96.7 fL (80.0-100.0); MONOCYTES 9.5 %; NUCLEATED RBCS 0 /100WBC; PLATELET COUNT* 272 thou/uL (150-400); POLYS 51.3 %; RBC 3.86 mil/uL (4.20-5.00); RDW-CV 13.3 % (10.5-14.5); WBC 8.3 thou/uL (4.0-11.0)
[2021-02-19 07:24] LABS: CALCIUM 8.1 mg/dL (8.5-10.1)
[2021-02-19 09:01] VITALS: BP 125/83
--- NOTE | 2021-02-19 09:21 | EKG ---
[place] [address] ELECTROCARDIOGRAM REPORT Name: MARIAHDIPESHWILLIE Room: [facility]#: [id number] Admission: 02/19/21 Attend Phys: Discharge: 02/19/21 Date of : 63 Date of Service: 02/19/21607 Report #: [id number] THIS REPORT FOR: //name// [facility] ED Test Date: 2021-02-19 Test Time: 06:08:34 Pat Name: WILLIE JHAVERI Department: Room: Gender: F Marble Polisher: MS : 1965 Requested By: Mercedes Espinoza Order Number: [id number] Nicole MD: Ilia Borjas Measurements Intervals [place] Rate: 79 P: 69 [place]: 132 QRS: 76 QRSD: 95 T: 69 QT: 440 QTc: 505 Interpretive Statements Sinus rhythm Borderline ST depression, anterolateral leads Prolonged QT interval Compared to ECG 01/30/2021 18:43:58 Prolonged QT interval now present Ventricular premature complex(es) no longer present ST (T wave) deviation slightly more prominent Electronically Signed On 02-19-2021 9:21:27 CDT by Ilia Borjas [email or web address] <ELECTRONICALLY SIGNED> By: Ilia Borjas MD, [facility] 02/19/21 0921 7 7 Ilia Borjas MD, [facility] /EPI
--- NOTE | 2021-02-19 09:21 | EKG ---
[place] [address] ELECTROCARDIOGRAM REPORT Name: WILLIE JHAVERI Room: [facility]#: [id number] Admission: 02/19/21 Attend Phys: Discharge: 02/19/21 Date of : 63 Date of Service: 02/19/21612 Report #: [id number] THIS REPORT FOR: //name// [facility] ED Test Date: 2021-02-19 Test Time: 06:13:16 Pat Name: WILLIE JHAVERI Department: Room: Gender: F Commissions Manager: MR : 1965 Requested By: Mercedes Espinoza Order Number: [id number] Nicole MD: Ilia Borjas Measurements Intervals [place] Rate: 78 P: 51 [place]: 137 QRS: 71 QRSD: 96 T: 74 QT: 463 QTc: 528 Interpretive Statements Sinus rhythm Prolonged QT interval Baseline wander in lead(s) II,III,aVR,aVL,aVF,V6 Compared to ECG 02/19/2021 06:08:34 ST (T wave) deviation no longer present Electronically Signed On 02-19-2021 9:21:39 CDT by Ilia Borjas [email or web address] <ELECTRONICALLY SIGNED> By: Ilia Borjas MD, [facility] 02/19/21920 2 2 Ilia Borjas MD, [facility] /EPI
== END 2021-02-19 09:03 | disposition home or self-care (01) ==
LOC: M.ERS 06:00
PROVIDERS: Emergency Medicine
DX: R07.89 Other chest pain (principal); R06.00 Dyspnea, unspecified; Z20.822 Contact with and (suspected) exposure to COVID-19; I10 Essential (primary) hypertension; E78.5 Hyperlipidemia, unspecified; F17.210 Nicotine dependence, cigarettes, uncomplicated; Z90.49 Acquired absence of other specified parts of digestive tract; Z98.51 Tubal ligation status; Z98.890 Other specified postprocedural states; Z90.710 Acquired absence of both cervix and uterus; Z87.01 Personal history of pneumonia (recurrent); Z88.5 Allergy status to narcotic agent; Z88.8 Allergy status to other drugs, medicaments and biological substances

== ENCOUNTER 2021-02-21 18:23 | Emergency (ER) | payer MEDICARE, MEDICAID ==
[~2021-02-21] VITALS: Ht 165.1 cm; Wt 77.1 kg
[2021-02-21 20:26] LABS: HEMATOCRIT 43.6 % (37.0-47.0); MCH 32.6 pg (26.0-34.0); MCHC 33.8 g/dL (28.0-37.0); MCV 96.5 fL (80.0-100.0); MPV 7.2 fl. (7.2-11.1); NUCLEATED RBCS 0 /100WBC; RBC 4.52 mil/uL (4.20-5.00); RDW-CV 13.6 % (10.5-14.5); WBC 20.8 thou/uL (4.0-11.0)
[2021-02-21 20:37] LABS: CALCIUM 9.5 mg/dL (8.5-10.1); CREATININE 1.1 mg/dL (0.6-1.3); POTASSIUM 3.4 mmol/L (3.5-5.1)
[2021-02-21 20:38] LABS: HEMOGLOBIN 14.7 gm/dL (12.0-15.0); PLATELET COUNT* 352 thou/uL (150-400)
[2021-02-21 20:38] LABS: AMP/METHAMP Negative (Negative); BARBITURATES Negative (Negative); BENZODIAZEPINES Negative (Negative); COCAINE Negative (Negative); METHADONE Negative (Negative); OPIATES Negative (Negative); PCP Negative (Negative); THC Negative (Negative)
[2021-02-21 20:40] LABS: APTT 24.2 Seconds (25.0-31.3); INR 0.9; PROTIME 10.1 Seconds (9.20-11.50)
[2021-02-21 20:56] LABS: ALBUMIN 4.3 g/dL (3.4-5.0); MAGNESIUM 2.1 mg/dL (1.8-2.4); TOTAL BILIRUBIN 0.7 mg/dL (<0.1-1.0); TOTAL PROTEIN 8.3 g/dL (6.4-8.2)
[2021-02-21 21:01] LABS: ABSOLUTE LYMPHOCYTES 2.7 thou/uL (0.8-5.3); ABSOLUTE MONOCYTES 2.1 thou/uL (0.0-1.2); PLATELET ESTIMATE ADEQUATE
[2021-02-21 21:54] LABS: URINE BILIRUBIN NEGATIVE (Negative); URINE BLOOD NEGATIVE (Negative); URINE CLARITY CLEAR; URINE COLOR YELLOW; URINE GLUCOSE-RANDOM NEGATIVE (Negative); URINE KETONES NEGATIVE (Negative); URINE LEUKOCYTES-REFLEX NEGATIVE (Negative); URINE NITRITE-REFLEX NEGATIVE (Negative); URINE PROTEIN NEGATIVE (Negative); URINE SPECIFIC GRAVITY 1.025 (1.005-1.030); URINE UROBILINOGEN 0.2 E.U./dl (0.2-1.0)
[2021-02-21] MEDS ORDERED: GABAPENTIN 100100 MG PO (23:46)
[2021-02-21] MEDS ORDERED: PREDNISONE50 MG PO (23:46)
[2021-02-22] VITALS: BP 133/78
--- NOTE | 2021-02-22 09:52 | EKG ---
[place] [address] ELECTROCARDIOGRAM REPORT Name: WILLIE JHAVERI Room: [facility]#: [id number] Admission: 02/21/21 Attend Phys: Discharge: 02/22/21 Date of : 63 Date of Service: 02/21/21 182 Report #: [id number] THIS REPORT FOR: //name// [facility] ED Test Date: 2021-02-21 Test Time: 18:28:15 Pat Name: WILLIE JHAVERI Department: Room: Gender: F Press Clipper: JANAK : 1965 Requested By: Den Evangelista Order Number: [id number] MD: Chele Quintana Measurements Intervals [place] Rate: 89 P: 44 [place]: 133 QRS: 64 QRSD: 91 T: -85 QT: 298 QTc: 363 Interpretive Statements Sinus rhythm Nonspecific repol abnormality, diffuse leads Compared to ECG 02/19/2021 06:13:16 Prolonged QT interval no longer present Electronically Signed On 02-22-2021 9:52:38 CDT by Chele Quintana [email or web address] <ELECTRONICALLY SIGNED> By: Chele Quintana MD, [facility] 02/22/21 0952 1828 1828 Chele Quintana MD, [facility] /EPI
== END 2021-02-22 | disposition still patient (30) ==
LOC: M.ERS 18:23
PROVIDERS: Emergency Medicine Emergency Medical Services; Personal Emergency Response Attendant
DX: R07.89 Other chest pain (principal); R05 Cough; R06.02 Shortness of breath; R11.0 Nausea; I10 Essential (primary) hypertension; E78.5 Hyperlipidemia, unspecified; F41.9 Anxiety disorder, unspecified; F17.210 Nicotine dependence, cigarettes, uncomplicated; Z79.82 Long term (current) use of aspirin; Z98.61 Coronary angioplasty status; Z98.890 Other specified postprocedural states; Z90.49 Acquired absence of other specified parts of digestive tract; Z98.51 Tubal ligation status; Z90.711 Acquired absence of uterus with remaining cervical stump; Z79.899 Other long term (current) drug therapy; Z88.5 Allergy status to narcotic agent; Z88.8 Allergy status to other drugs, medicaments and biological substances

== ENCOUNTER 2021-05-19 20:07 | Emergency (ER) | payer MEDICARE, MEDICAID ==
[~2021-05-19] VITALS: Ht 165.1 cm; Wt 72.6 kg
[~2021-05-19 20:07] MED LIST changes: +GABAPENTIN 100100 MG PO; +PREDNISONE50 MG PO
[2021-05-19] MEDS ORDERED: PROPRANOLOL 1010 MG PO (20:19)
[2021-05-19 20:36] LABS: CALCIUM 8.7 mg/dL (8.5-10.1); CREATININE 1.1 mg/dL (0.6-1.3); POTASSIUM 3.7 mmol/L (3.5-5.1)
[2021-05-19 20:43] LABS: URINE BILIRUBIN NEGATIVE (Negative); URINE BLOOD NEGATIVE (Negative); URINE CLARITY CLEAR; URINE COLOR STRAW; URINE GLUCOSE-RANDOM NEGATIVE (Negative); URINE KETONES NEGATIVE (Negative); URINE LEUKOCYTES-REFLEX NEGATIVE (Negative); URINE NITRITE-REFLEX NEGATIVE (Negative); URINE PROTEIN NEGATIVE (Negative); URINE SPECIFIC GRAVITY <= 1.005 (1.005-1.030); URINE UROBILINOGEN 0.2 E.U./dl (0.2-1.0)
[2021-05-19 20:44] LABS: ABSOLUTE BASOPHILS 0.2 thou/uL (0.0-0.2); ABSOLUTE EOSINOPHILS 0.1 thou/uL (0.0-0.7); ABSOLUTE LYMPHOCYTES 3.1 thou/uL (0.8-5.3); ABSOLUTE MONOCYTES 0.7 thou/uL (0.0-1.2); ABSOLUTE NEUTROPHILS 6.2 thou/uL (1.6-8.1); BASOPHILS 1.5 %; EOSINOPHILS 1.4 %; HEMATOCRIT 38.1 % (37.0-47.0); HEMOGLOBIN 13.2 gm/dL (12.0-15.0); LYMPHOCYTES 30.1 %; MCH 32.7 pg (26.0-34.0); MCHC 34.7 g/dL (28.0-37.0); MCV 94.3 fL (80.0-100.0); MONOCYTES 6.8 %; MPV 7.3 fl. (7.2-11.1); NUCLEATED RBCS 0 /100WBC; PLATELET COUNT* 274 thou/uL (150-400); POLYS 60.2 %; RBC 4.04 mil/uL (4.20-5.00); RDW-CV 12.5 % (10.5-14.5); WBC 10.3 thou/uL (4.0-11.0)
[2021-05-19 20:46] LABS: ALBUMIN 3.8 g/dL (3.4-5.0); MAGNESIUM 1.8 mg/dL (1.8-2.4); TOTAL BILIRUBIN 0.2 mg/dL (<0.1-1.0)
[2021-05-19 21:37] LABS: AMP/METHAMP Negative (Negative); BARBITURATES Negative (Negative); BENZODIAZEPINES Negative (Negative); COCAINE Negative (Negative); METHADONE Negative (Negative); OPIATES Negative (Negative); PCP Negative (Negative); THC Negative (Negative)
[2021-05-20 00:45] VITALS: BP 145/65
--- NOTE | 2021-05-20 11:46 | EKG ---
[place] [address] ELECTROCARDIOGRAM REPORT Name: WILLIE JHAVERI Wilber Room: [facility]#: [id number] Admission: 05/19/21 Attend Phys: Discharge: 05/20/21 Date of : 63 Date of Service: 05/19/212013 Report #: [id number] THIS REPORT FOR: //name// [facility] ED Test Date: 2021-05-19 Test Time: 20:14:32 Pat Name: WILLIE JHAVERI Department: Room: Gender: F Group Sales Coordinator: WING Molina DOB: 1965 Requested By: Mercedes Espinoza Order Number: [id number] MD: Chele Quintana Measurements Intervals [place] Rate: 97 P: 65 [place]: 139 QRS: 73 QRSD: 91 T: -74 QT: 376 QTc: 478 Interpretive Statements Sinus rhythm Multiple ventricular premature complexes Borderline repolarization abnormality Borderline prolonged QT interval Compared to ECG 02/21/2021 18:28:15 Ventricular premature complex(es) now present Electronically Signed On 05-20-2021 11:46:39 CDT by Chele Quintana [email or web address] <ELECTRONICALLY SIGNED> By: Chele Quintana MD, FAC 05/20/21 1146 13 13 Chele Quintana MD, [facility] /EPI
--- NOTE | 2021-05-21 13:31 | EKG ---
[place] [address] ELECTROCARDIOGRAM REPORT Name: WILLIE JHAVERI Room: [facility]#: [id number] Admission: 05/19/21 Attend Phys: Discharge: 05/20/21 Date of : 63 Date of Service: 05/19/21 2346 Report #: [id number] THIS REPORT FOR: //name// [facility] ED Test Date: 2021-05-19 Test Time: 23:46:11 Pat Name: WILLIE JHAVERI Department: Room: Gender: F Glaze Carrier: BG : 1965 Requested By: Mercedes Espinoza Order Number: [id number] Reading MD: Chele Quintana Measurements Intervals [place] Rate: 85 P: 72 MI: 143 QRS: 67 QRSD: 92 T: 54 QT: 390 QTc: 464 Interpretive Statements Sinus rhythm Borderline repolarization abnormality Baseline wander in lead(s) II,III,aVR,aVL,aVF,V4,V6 Compared to ECG 05/19/2021 20:14:32 Ventricular premature complex(es) no longer present Electronically Signed On 05-21-2021 13:31:11 CDT by Chele Quintana [email or web address] <ELECTRONICALLY SIGNED> By: Chele Quintana MD, [facility] 05/21/21 1331 2346 2346 Chele Quintana MD, [facility] /EPI
== END 2021-05-20 00:45 | disposition home or self-care (01) ==
LOC: M.ERS 20:07
PROVIDERS: Emergency Medicine
DX: R07.89 Other chest pain (principal); I10 Essential (primary) hypertension; E78.5 Hyperlipidemia, unspecified; F17.210 Nicotine dependence, cigarettes, uncomplicated; Z88.5 Allergy status to narcotic agent; Z88.8 Allergy status to other drugs, medicaments and biological substances; Z90.49 Acquired absence of other specified parts of digestive tract; Z90.89 Acquired absence of other organs; Z98.890 Other specified postprocedural states; Z90.710 Acquired absence of both cervix and uterus; Z87.01 Personal history of pneumonia (recurrent); Z79.899 Other long term (current) drug therapy

== ENCOUNTER 2021-06-09 21:15 | Inpatient (IN) | payer MEDICARE, MEDICAID ==
[~2021-06-09] VITALS: Ht 165.1 cm; Wt 78.0 kg
[~2021-06-09 21:15] MED LIST changes: +PROPRANOLOL 1010 MG PO
[2021-06-09 21:20] VITALS: BP 114/74
[2021-06-09 21:54] LABS: ABSOLUTE BASOPHILS 0.1 thou/uL (0.0-0.2); ABSOLUTE EOSINOPHILS 0.1 thou/uL (0.0-0.7); ABSOLUTE LYMPHOCYTES 1.3 thou/uL (0.8-5.3); ABSOLUTE NEUTROPHILS 4.7 thou/uL (1.6-8.1); BASOPHILS 0.9 %; EOSINOPHILS 1.2 %; HEMOGLOBIN 12.6 gm/dL (12.0-15.0); MCH 32.3 pg (26.0-34.0); MCHC 34.1 g/dL (28.0-37.0); MCV 94.6 fL (80.0-100.0); MONOCYTES 13.5 %; MPV 7.3 fl. (7.2-11.1); NUCLEATED RBCS 0 /100WBC; PLATELET COUNT* 251 thou/uL (150-400); POLYS 66.4 %; RBC 3.91 mil/uL (4.20-5.00); RDW-CV 12.8 % (10.5-14.5); WBC 7.1 thou/uL (4.0-11.0)
[2021-06-09 22:05] LABS: POTASSIUM 3.5 mmol/L (3.5-5.1)
[2021-06-09 22:15] LABS: ALBUMIN 3.5 g/dL (3.4-5.0); MAGNESIUM 1.9 mg/dL (1.8-2.4); TOTAL BILIRUBIN 0.2 mg/dL (<0.1-1.0); TOTAL PROTEIN 6.7 g/dL (6.4-8.2)
[2021-06-10 01:46] LABS: URINE BILIRUBIN NEGATIVE (Negative); URINE BLOOD NEGATIVE (Negative); URINE CLARITY CLEAR; URINE COLOR YELLOW; URINE GLUCOSE-RANDOM NEGATIVE (Negative); URINE KETONES NEGATIVE (Negative); URINE LEUKOCYTES-REFLEX NEGATIVE (Negative); URINE NITRITE-REFLEX NEGATIVE (Negative); URINE PROTEIN NEGATIVE (Negative); URINE UROBILINOGEN 0.2 E.U./dl (0.2-1.0)
[2021-06-10 03:10] VITALS: BP 100/67
[2021-06-10 03:45] VITALS: BP 111/75
--- NOTE | 2021-06-10 04:10 | NUR ---
PT TO FLOOR FROM ED AO X4. SOME DROWSINESS FROM PAIN MEDS. STATES PAIN IN HEAD AND CHEST, STATES COUGH IS INFREQUENT AND NOT PRODUCING ANYTHING AT THIS TIME. LUNGS DIMINISHED WITH 2L PER NC. HAVING BODY ACHES IN JOINTS. CALL LIGHT IN REACH, BED ALARM ON FOR SAFETY
--- NOTE | 2021-06-10 06:49 | NUR ---
PT SLEPT THIS SHIFT SINCE ADMIT, MAKING NO REQUESTS OF STAFF. MEDS AND PHARMACY REVIEWED WITH PT UPON ADMIT. SATTING APPROPRIATLY ON 2L NC. AWAITING ORDERS FROM HOSPITALIST THIS AM. BED ALARM ON FOR SAFETY, CALL LIGHT WITHIN REACH
[2021-06-10 07:45] VITALS: BP 116/77
[2021-06-10 11:37] VITALS: BP 112/68
[2021-06-10 12:09] LABS: CALCIUM 8.2 mg/dL (8.5-10.1); POTASSIUM 4.2 mmol/L (3.5-5.1)
[2021-06-10 12:13] LABS: PHOSPHORUS* 1.9 mg/dL (2.5-4.9)
--- NOTE | 2021-06-10 14:52 | NUR ---
Pt is A&O. Resides at home with family. Pt is covid positive and on enhanced precautions. Cm spoke with Pt via phone. No DME. Independent. Hx of HH. No hx of SNF. Goal is home at dc. Pt off o2. Anticipate dc in a few days.
[2021-06-10 16:16] VITALS: BP 121/78
--- NOTE | 2021-06-10 16:34 | NUR ---
PT ALERT AND ORIENTED X4, HR NSR, PT ON 2L NC. PT REQUESTS FENTANYL EVERY 3 HOURS FOR HEAD AND CHEST PAIN, PATIENT SAYS IT HURTS WHEN SHE TAKES A DEEP BREATH. PT EDUCATED HOW TO USE INCENTIVE SPIROMETER, AND THE IMPORTANCE OF PRONING. PT ABLE TO GET INCENTIVE SPIROMETER TO 1500. SHE FREQUENTLY TAKES OFF HEART MONITOR AND PULSE OX.
[2021-06-10 20:00] VITALS: BP 117/82
[2021-06-11 00:49] VITALS: BP 97/54
[2021-06-11 04:50] VITALS: BP 93/45
--- NOTE | 2021-06-11 05:30 | NUR ---
ASSUMED PT CARE APPROX 1930. PT IS AWAKE AND ORIENTED X4. PT IS NOT IN DISTRESS, PT IS SHORT OF AIR WITH ACTIVITY. PT IS TRACING SR ON THE COMPUTER LAB PARA PROFESSIONAL. PT C/O HEADACHE AND PLEURITIC CHEST PAIN RELIEVED BY PAIN MEDS GIVEN PER JAN. NO ACUTE CHANGES THIS SHIFT. CALL LIGHT WITHIN REACH. HOURLY ROUNDING DONE FOR PT SAFETY.
[2021-06-11 08:00] VITALS: BP 103/67
[2021-06-11 12:00] VITALS: BP 107/63
--- NOTE | 2021-06-11 13:02 | NUR ---
Covid positive. Pt on 2L of o2, continue to wean. Anticipate dc in a few days.
--- NOTE | 2021-06-11 15:22 | EKG ---
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 06/11/21 1522 29 29 Ilia Borjas MD, [facility] /EPI
[2021-06-11 20:00] VITALS: BP 136/81
[2021-06-12 00:26] VITALS: BP 106/67
--- NOTE | 2021-06-12 04:58 | NUR ---
ASSUMED PT CARE AT APPROX 1930. PT IS AWAKE AND ORIENTED X4. 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 PT IS NOT IN DISTRESS, PT IS ON 2L OF O2 AT HS TO KEEP spO2 >92%. PT C/O HEADACHE PARTIALLY RELIEVED BY PAIN MEDS GIVEN PER MAR. NO ACUTE CHANGES THIS SHIFT. CALL LIGHT WITHIN REACH. HOURLY ROUNDING DONE FOR PT SAFETY.
[2021-06-12 05:04] VITALS: BP 113/66
[2021-06-12 08:07] VITALS: BP 136/89
[2021-06-12] MEDS ORDERED: VENTOLIN HFA 1818 GM INH (11:42)
[2021-06-12] MEDS ORDERED: DEXAMETHASONE6 MG PO (11:42)
[2021-06-12] MEDS ORDERED: OXYCODONE HCL10 MG PO (11:42)
[2021-06-12 12:07] VITALS: BP 139/83
--- NOTE | 2021-06-12 12:43 | NUR ---
poc: pt is on 2l of o2. the plan is for pt to possibly d.c. tomorrow, may need exercise oximetry if still o2 dependent.
[2021-06-12 14:00] VITALS: BP 139/83
--- NOTE | 2021-06-12 14:35 | NUR ---
Reviewed discharge teaching with patient, verbalized understanding. hide buffer and IV dc'd. Discharged from unit per WC.
== END 2021-06-12 14:35 | disposition home or self-care (01) | DRG 177 ==
LOC: M.ERS 21:15 → M.ORTHSURG 06-10 00:39 → M.TBA-ER 06-10 00:39 → M.ORTHSURG 06-10 03:13
PROVIDERS: Emergency Medicine; ADMIT Internal Medicine; ATTEND Internal Medicine
PROC: XW033E5 Introduction of Remdesivir Anti-infective into Peripheral Vein, Percutaneous Approach, New Technology Group 5 (ICD-10-PCS; principal; 2021-06-10)
DX: U07.1 COVID-19 (principal); J12.82 Pneumonia due to coronavirus disease 2019; J96.00 Acute respiratory failure, unspecified whether with hypoxia or hypercapnia; I10 Essential (primary) hypertension; E78.5 Hyperlipidemia, unspecified; F41.9 Anxiety disorder, unspecified; F17.210 Nicotine dependence, cigarettes, uncomplicated; M19.90 Unspecified osteoarthritis, unspecified site; F32.9 Major depressive disorder, single episode, unspecified; Z88.8 Allergy status to other drugs, medicaments and biological substances; Z90.49 Acquired absence of other specified parts of digestive tract; Z98.891 History of uterine scar from previous surgery; Z90.710 Acquired absence of both cervix and uterus; Z88.5 Allergy status to narcotic agent; Z72.89 Other problems related to lifestyle

== ENCOUNTER 2021-06-16 19:30 | Emergency (ER) | payer MEDICARE, MEDICAID ==
[~2021-06-16] VITALS: Ht 165.1 cm; Wt 77.1 kg
[~2021-06-16 19:30] MED LIST changes: +DEXAMETHASONE6 MG PO; +OXYCODONE HCL10 MG PO; +VENTOLIN HFA 1818 GM INH
[2021-06-16] MEDS ORDERED: WELLBUTRIN 100100 MG PO (19:37)
[2021-06-16] MEDS ORDERED: CLONAZEPAM0.125 MG PO (19:37)
[2021-06-16] MEDS ORDERED: INDERAL LA120 M1 PO (19:37)
[2021-06-16] MEDS ORDERED: LIPITOR10 MG PO (19:37)
[2021-06-16] MEDS ORDERED: SEROQUEL XR1 EACH PO (19:40)
[2021-06-16 20:49] LABS: ABSOLUTE LYMPHOCYTES 2.4 thou/uL (0.8-5.3); ABSOLUTE NEUTROPHILS 7.4 thou/uL (1.6-8.1); BASOPHILS 0.4 %; EOSINOPHILS 0.3 %; HEMATOCRIT 40.7 % (37.0-47.0); HEMOGLOBIN 14.5 gm/dL (12.0-15.0); LYMPHOCYTES 22.3 %; MCHC 35.6 g/dL (28.0-37.0); MCV 92.6 fL (80.0-100.0); MONOCYTES 9.1 %; MPV 7.3 fl. (7.2-11.1); NUCLEATED RBCS 0 /100WBC; PLATELET COUNT* 258 thou/uL (150-400); POLYS 67.9 %; RBC 4.39 mil/uL (4.20-5.00); RDW-CV 12.9 % (10.5-14.5); WBC 10.9 thou/uL (4.0-11.0)
[2021-06-16 20:51] LABS: AMP/METHAMP Negative (Negative); BARBITURATES Negative (Negative); BENZODIAZEPINES Negative (Negative); COCAINE Negative (Negative); METHADONE Negative (Negative); OPIATES Negative (Negative); PCP Negative (Negative); THC Negative (Negative)
[2021-06-16 20:53] LABS: CALCIUM 8.4 mg/dL (8.5-10.1); POTASSIUM 3.2 mmol/L (3.5-5.1)
[2021-06-16 20:58] LABS: ALBUMIN 3.7 g/dL (3.4-5.0); MAGNESIUM 2.2 mg/dL (1.8-2.4); TOTAL BILIRUBIN 0.3 mg/dL (<0.1-1.0); TOTAL PROTEIN 7.1 g/dL (6.4-8.2)
[2021-06-16 21:11] VITALS: BP 121/75
--- NOTE | 2021-06-17 10:00 | EKG ---
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: [facility] : 1965 Requested By: Norma Ritter Order Number: [id number] MD: Chele Quintana Measurements Intervals [place] Rate: 87 P: 54 DC: 133 QRS: 68 QRSD: 97 T: 36 QT: 420 QTc: 506 Interpretive Statements Sinus rhythm Borderline repolarization abnormality Prolonged QT interval No previous ECG available for comparison Electronically Signed On 06-17-2021 10:00:04 CDT by Cheel Quintana [email or web address] <ELECTRONICALLY SIGNED> By: Chele Quintana MD, [facility] 06/17/21999 21 21 Chele Quintana MD, [facility] /EPI
== END 2021-06-16 21:11 | disposition home or self-care (01) ==
LOC: M.ERS 19:30
PROVIDERS: Personal Emergency Response Attendant
DX: G89.29 Other chronic pain (principal); U07.1 COVID-19; J44.9 Chronic obstructive pulmonary disease, unspecified; Z88.5 Allergy status to narcotic agent

== ENCOUNTER 2021-07-10 19:19 | Emergency (ER) | payer MEDICARE, MEDICAID ==
[~2021-07-10] VITALS: Ht 165.1 cm; Wt 77.1 kg
[~2021-07-10 19:19] MED LIST changes: +CLONAZEPAM0.125 MG PO; +INDERAL LA120 M1 PO; +SEROQUEL XR1 EACH PO; +WELLBUTRIN 100100 MG PO
[2021-07-10 21:32] LABS: HEMATOCRIT 40.5 % (37.0-47.0); HEMOGLOBIN 13.3 gm/dL (12.0-15.0); MCH 31.3 pg (26.0-34.0); MCHC 32.8 g/dL (28.0-37.0); MCV 95.4 fL (80.0-100.0); MPV 6.7 fl. (7.2-11.1); RBC 4.25 mil/uL (4.20-5.00); RDW-CV 14.3 % (10.5-14.5); WBC 13.5 thou/uL (4.0-11.0)
[2021-07-10 21:42] LABS: CALCIUM 8.9 mg/dL (8.5-10.1); CREATININE 1.2 mg/dL (0.6-1.3); POTASSIUM 4.5 mmol/L (3.5-5.1)
[2021-07-10 21:47] LABS: TOTAL BILIRUBIN 0.3 mg/dL (<0.1-1.0); TOTAL PROTEIN 6.7 g/dL (6.4-8.2)
[2021-07-10 22:38] LABS: URINE BILIRUBIN NEGATIVE (Negative); URINE BLOOD NEGATIVE (Negative); URINE CLARITY CLEAR; URINE COLOR STRAW; URINE GLUCOSE-RANDOM NEGATIVE (Negative); URINE KETONES NEGATIVE (Negative); URINE LEUKOCYTES-REFLEX NEGATIVE (Negative); URINE NITRITE-REFLEX NEGATIVE (Negative); URINE PROTEIN NEGATIVE (Negative); URINE SPECIFIC GRAVITY <= 1.005 (1.005-1.030); URINE UROBILINOGEN 0.2 E.U./dl (0.2-1.0)
[2021-07-10 22:46] LABS: AMP/METHAMP Negative (Negative); BARBITURATES POSITIVE (Negative); BENZODIAZEPINES Negative (Negative); COCAINE Negative (Negative); METHADONE Negative (Negative); OPIATES Negative (Negative); PCP Negative (Negative); THC Negative (Negative)
[2021-07-10] MEDS ORDERED: HYDROCODON-ACE1 EAC7 PO (23:57)
[2021-07-10] MEDS ORDERED: IBUPROFEN 800800 MG PO (23:57)
[2021-07-11 00:04] VITALS: BP 168/89
--- NOTE | 2021-07-11 16:14 | EKG ---
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1965 Requested By: Norma Ritter Order Number: [id number] MD: Ilia Borjas Measurements Intervals [place] Rate: 94 P: 52 ID: 133 QRS: 62 QRSD: 95 T: 42 QT: 395 QTc: 495 Interpretive Statements Sinus rhythm Borderline repolarization abnormality Borderline prolonged QT interval Baseline wander in lead(s) V6 Compared to ECG 06/16/2021 20:22:19 No significant changes Electronically Signed On 07-11-2021 16:13:58 CDT by Ilia Borjas [email or web address] <ELECTRONICALLY SIGNED> By: Ilia Borjas MD, [facility] 07/11/21 1613 21 21 Ilia Borjas MD, [facility] /EPI
== END 2021-07-11 00:05 | disposition home or self-care (01) ==
LOC: M.ERS 19:19
PROVIDERS: Personal Emergency Response Attendant
DX: G89.29 Other chronic pain (principal); M54.5 Low back pain; J44.9 Chronic obstructive pulmonary disease, unspecified; Z79.891 Long term (current) use of opiate analgesic; Z79.51 Long term (current) use of inhaled steroids; Z79.899 Other long term (current) drug therapy; Z88.5 Allergy status to narcotic agent; Z88.8 Allergy status to other drugs, medicaments and biological substances

== ENCOUNTER 2021-07-14 12:28 | Emergency (ER) | payer MEDICARE, MEDICAID ==
[~2021-07-14] VITALS: Ht 165.1 cm; Wt 77.1 kg
[2021-07-14 12:59] LABS: ABSOLUTE BASOPHILS 0.1 thou/uL (0.0-0.2); ABSOLUTE NEUTROPHILS 11.2 thou/uL (1.6-8.1); BASOPHILS 0.9 %; EOSINOPHILS 0.2 %; HEMATOCRIT 46.9 % (37.0-47.0); HEMOGLOBIN 15.7 gm/dL (12.0-15.0); LYMPHOCYTES 13.9 %; MCH 31.7 pg (26.0-34.0); MCHC 33.4 g/dL (28.0-37.0); MCV 94.9 fL (80.0-100.0); MONOCYTES 7.1 %; NUCLEATED RBCS 0 /100WBC; PLATELET COUNT* 355 thou/uL (150-400); POLYS 77.9 %; RBC 4.94 mil/uL (4.20-5.00); RDW-CV 14.3 % (10.5-14.5); WBC 14.4 thou/uL (4.0-11.0)
[2021-07-14 13:15] LABS: CALCIUM 9.2 mg/dL (8.5-10.1); CREATININE 1.4 mg/dL (0.6-1.3); POTASSIUM 3.8 mmol/L (3.5-5.1)
[2021-07-14 13:20] LABS: ALBUMIN 4.2 g/dL (3.4-5.0); TOTAL BILIRUBIN 0.2 mg/dL (<0.1-1.0); TOTAL PROTEIN 7.7 g/dL (6.4-8.2)
[2021-07-14 13:58] VITALS: BP 110/81
--- NOTE | 2021-07-15 10:45 | EKG ---
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: MARLO : 1965 Requested By: Brayden England Order Number: [id number] MD: Chele Quintana Measurements Intervals [place] Rate: 83 P: 63 FL: 125 QRS: 76 QRSD: 97 T: 266 QT: 384 QTc: 452 Interpretive Statements Sinus rhythm Repol abnrm suggests ischemia, diffuse leads Baseline wander in lead(s) II,III,aVR,aVL,aVF,V4,V5,V6 Compared to ECG 07/10/2021 19:22:22 Possible ischemia now present Electronically Signed On 07-15-2021 10:45:29 CDT by Chele Quintana [email or web address] <ELECTRONICALLY SIGNED> By: Chele Quintana MD, [facility] 07/15/21 1045 1352 1352 Chele Quintana MD, [facility] /EPI
== END 2021-07-14 13:59 | disposition home or self-care (01) ==
LOC: M.ERS 12:28
PROVIDERS: Family Medicine
DX: G45.9 Transient cerebral ischemic attack, unspecified (principal); Z86.73 Personal history of transient ischemic attack (TIA), and cerebral infarction without residual deficits; Z79.82 Long term (current) use of aspirin; J44.9 Chronic obstructive pulmonary disease, unspecified; Z79.899 Other long term (current) drug therapy; Z88.5 Allergy status to narcotic agent; Z88.8 Allergy status to other drugs, medicaments and biological substances

== ENCOUNTER 2021-07-28 17:41 | Emergency (ER) | payer MEDICARE, MEDICAID ==
[~2021-07-28] VITALS: Ht 165.1 cm; Wt 77.1 kg
[2021-07-28 18:53] LABS: ABSOLUTE BASOPHILS 0.1 thou/uL (0.0-0.2); ABSOLUTE EOSINOPHILS 0.2 thou/uL (0.0-0.7); ABSOLUTE LYMPHOCYTES 2.6 thou/uL (0.8-5.3); ABSOLUTE MONOCYTES 0.7 thou/uL (0.0-1.2); ABSOLUTE NEUTROPHILS 6.9 thou/uL (1.6-8.1); BASOPHILS 0.8 %; EOSINOPHILS 1.8 %; HEMATOCRIT 39.2 % (37.0-47.0); HEMOGLOBIN 13.4 gm/dL (12.0-15.0); LYMPHOCYTES 24.7 %; MCH 32.7 pg (26.0-34.0); MCHC 34.1 g/dL (28.0-37.0); MCV 95.7 fL (80.0-100.0); MONOCYTES 6.9 %; MPV 8.2 fl. (7.2-11.1); NUCLEATED RBCS 0 /100WBC; PLATELET COUNT* 268 thou/uL (150-400); POLYS 65.8 %; RDW-CV 14.2 % (10.5-14.5); WBC 10.5 thou/uL (4.0-11.0)
[2021-07-28 19:00] LABS: CALCIUM 8.5 mg/dL (8.5-10.1); CREATININE 0.9 mg/dL (0.6-1.3)
[2021-07-28 19:01] LABS: POTASSIUM 4.7 mmol/L (3.5-5.1)
[2021-07-28 19:04] LABS: ALBUMIN 3.7 g/dL (3.4-5.0); MAGNESIUM 1.8 mg/dL (1.8-2.4); TOTAL BILIRUBIN 0.3 mg/dL (<0.1-1.0)
[2021-07-28 20:16] VITALS: BP 152/84
--- NOTE | 2021-07-29 10:13 | EKG ---
[place] [address] ELECTROCARDIOGRAM REPORT Name: WILLIE JHAVERI Wilber Room: [facility]#: [id number] Admission: 07/28/21 Attend Phys: Discharge: 07/28/21 Date of : 63 Date of Service: 07/28/21 1740 Report #: [id number] THIS REPORT FOR: //name// 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 : 1965 Requested By: Den Evangelista Order Number: [id number] MD: Chele Quintana Measurements Intervals [place] Rate: 92 P: 57 [place]: 143 QRS: 70 QRSD: 92 T: 43 QT: 377 QTc: 467 Interpretive Statements Sinus rhythm Baseline wander in lead(s) II,III,aVF Compared to ECG 07/14/2021 13:52:17 Possible ischemia no longer present Electronically Signed On 07-29-2021 10:13:32 CDT by Chele Quintana [email or web address] <ELECTRONICALLY SIGNED> By: Chele Quintana MD, [facility] 07/29/21 1013 1740 1740 Chele Quintana MD, [facility] /EPI
== END 2021-07-28 20:17 | disposition home or self-care (01) ==
LOC: M.ERS 17:41
PROVIDERS: Emergency Medicine Emergency Medical Services
DX: R51.9 Headache, unspecified (principal); R07.89 Other chest pain; J44.9 Chronic obstructive pulmonary disease, unspecified; F17.210 Nicotine dependence, cigarettes, uncomplicated; Z86.73 Personal history of transient ischemic attack (TIA), and cerebral infarction without residual deficits; Z88.5 Allergy status to narcotic agent; Z88.8 Allergy status to other drugs, medicaments and biological substances; Z79.899 Other long term (current) drug therapy

== ENCOUNTER 2021-08-05 15:58 | Emergency (ER) | payer MEDICARE, MEDICAID ==
[~2021-08-05] VITALS: Ht 165.1 cm; Wt 77.1 kg
[2021-08-05 19:16] VITALS: BP 140/58
== END 2021-08-05 19:17 | disposition home or self-care (01) ==
LOC: M.ERS 15:58
DX: G43.909 Migraine, unspecified, not intractable, without status migrainosus (principal); J44.9 Chronic obstructive pulmonary disease, unspecified; Z79.51 Long term (current) use of inhaled steroids; Z79.899 Other long term (current) drug therapy; Z88.5 Allergy status to narcotic agent; Z88.6 Allergy status to analgesic agent; Z88.8 Allergy status to other drugs, medicaments and biological substances

== ENCOUNTER 2021-08-09 08:30 | Emergency (ER) | payer MEDICARE, MEDICAID ==
[~2021-08-09] VITALS: Ht 167.6 cm; Wt 77.6 kg
[2021-08-09 10:03] VITALS: BP 107/65
== END 2021-08-09 10:03 | disposition home or self-care (01) ==
LOC: M.ERS 08:30
DX: S09.90XA Unspecified injury of head, initial encounter (principal); R51.9 Headache, unspecified; J44.9 Chronic obstructive pulmonary disease, unspecified; F41.9 Anxiety disorder, unspecified; Z79.899 Other long term (current) drug therapy; Z88.5 Allergy status to narcotic agent; Z88.8 Allergy status to other drugs, medicaments and biological substances; Z88.9 Allergy status to unspecified drugs, medicaments and biological substances; W07.XXXA Fall from chair, initial encounter; Y93.89 Activity, other specified; Y92.89 Other specified places as the place of occurrence of the external cause; Y99.8 Other external cause status

== ENCOUNTER 2021-11-09 16:51 | Emergency (ER) | payer MEDICARE, MEDICAID ==
[~2021-11-09] VITALS: Ht 165.1 cm; Wt 81.7 kg
[2021-11-09] MEDS ORDERED: HYDROCODON-ACE1 EAC7 PO (18:02)
[2021-11-09 18:07] VITALS: BP 114/70
== END 2021-11-09 18:08 | disposition home or self-care (01) ==
LOC: M.ERS 16:51
DX: M54.59 Other low back pain (principal); J44.1 Chronic obstructive pulmonary disease with (acute) exacerbation; F41.9 Anxiety disorder, unspecified; Z79.899 Other long term (current) drug therapy; Z88.5 Allergy status to narcotic agent; Z88.8 Allergy status to other drugs, medicaments and biological substances

== ENCOUNTER 2021-12-16 22:43 | Emergency (ER) | payer MEDICARE, MEDICAID ==
[~2021-12-16] VITALS: Ht 165.1 cm; Wt 81.7 kg
--- NOTE | ~2021-12-16 | EKG ---
[place] [address] ELECTROCARDIOGRAM REPORT Name: WILLIE PEDRO Room: [facility]#: [id number] Admission: 12/16/21 Attend Phys: Discharge: 12/17/21 Date of : 63 Date of Service: 12/16/212247 Report #: [id number] THIS REPORT FOR: //name// [facility] ED Test Date: 2021-12-16 Test Time: 22:48:33 Pat Name: WILLIE LANDON Department: Room: Gender: F Mechanical Lead: [place] : 1965 Requested By: Mercedes Espinoza Order Number: [id number] Reading MD: Measurements Intervals [place] Rate: 85 P: 47 [place]: 136 QRS: 65 QRSD: 90 T: 54 QT: 458 QTc: 545 Interpretive Statements Sinus rhythm Minimal ST depression, inferior leads Prolonged QT interval No previous ECG available for comparison [email or web address] By: 47 [id number] [facility]ina /EPI
[2021-12-16 22:48] VITALS: BP 186/102
[2021-12-17 00:56] LABS: ABSOLUTE BASOPHILS 0.1 thou/uL (0.0-0.2); ABSOLUTE EOSINOPHILS 0.2 thou/uL (0.0-0.7); ABSOLUTE LYMPHOCYTES 3.1 thou/uL (0.8-5.3); ABSOLUTE MONOCYTES 0.9 thou/uL (0.0-1.2); ABSOLUTE NEUTROPHILS 6.9 thou/uL (1.6-8.1); BASOPHILS 0.7 %; EOSINOPHILS 2.1 %; HEMATOCRIT 40.5 % (37.0-47.0); HEMOGLOBIN 13.5 gm/dL (12.0-15.0); LYMPHOCYTES 27.7 %; MCH 30.9 pg (26.0-34.0); MCHC 33.3 g/dL (28.0-37.0); MONOCYTES 7.6 %; MPV 6.9 fl. (7.2-11.1); NUCLEATED RBCS 0 /100WBC; PLATELET COUNT* 274 thou/uL (150-400); POLYS 61.9 %; RBC 4.36 mil/uL (4.20-5.00); RDW-CV 13.2 % (10.5-14.5); WBC 11.2 thou/uL (4.0-11.0)
[2021-12-17 01:00] LABS: CALCIUM 8.5 mg/dL (8.5-10.1); CREATININE 0.9 mg/dL (0.6-1.3); POTASSIUM 3.6 mmol/L (3.5-5.1)
[2021-12-17 01:07] LABS: URINE BILIRUBIN NEGATIVE (Negative); URINE BLOOD NEGATIVE (Negative); URINE CLARITY CLEAR; URINE COLOR STRAW; URINE GLUCOSE-RANDOM NEGATIVE (Negative); URINE KETONES NEGATIVE (Negative); URINE LEUKOCYTES-REFLEX NEGATIVE (Negative); URINE NITRITE-REFLEX NEGATIVE (Negative); URINE PROTEIN NEGATIVE (Negative); URINE SPECIFIC GRAVITY <= 1.005 (1.005-1.030); URINE UROBILINOGEN 0.2 E.U./dl (0.2-1.0)
== END 2021-12-17 01:20 | disposition left against medical advice (07) ==
LOC: M.ERS 22:43
PROVIDERS: Emergency Medicine
DX: G43.909 Migraine, unspecified, not intractable, without status migrainosus (principal); R30.0 Dysuria; J44.9 Chronic obstructive pulmonary disease, unspecified; F41.9 Anxiety disorder, unspecified; Z86.73 Personal history of transient ischemic attack (TIA), and cerebral infarction without residual deficits; Z79.899 Other long term (current) drug therapy; Z88.5 Allergy status to narcotic agent; Z88.8 Allergy status to other drugs, medicaments and biological substances